=== PATIENT | female | born 1935 | race Caucasian/White ===

== ENCOUNTER → 2016-08-16 | Outpatient (REF) | payer MEDICARE, OTHER ==
[2016-08-16 11:43] LABS: ALBUMIN 3.5 GM/DL (3.2-5.2); ALBUMIN/GLOBULIN RATIO 1.06 (1.00-1.93); ALKALINE PHOSPHATASE 54 U/L (45-117); ALT/SGPT 20 U/L (12-78); ANION GAP 6 MEQ/L (8-16); AST/SGOT 20 U/L (15-37); BILIRUBIN,TOTAL 1.2 MG/DL (0.2-1.0); BLOOD UREA NITROGEN 34 MG/DL (7-18); CALCIUM LEVEL 8.8 MG/DL (8.8-10.2); CARBON DIOXIDE LEVEL 28 MEQ/L (21-32); CHLORIDE LEVEL 107 MEQ/L (98-107); CHOLESTEROL LEVEL 259 MG/DL (<200); CREATININE FOR GFR 0.69 MG/DL (0.55-1.02); GLOMERULAR FILTRATION RATE > 60.0 (>39); GLUCOSE, FASTING 92 MG/DL (83-110); POTASSIUM SERUM 4.1 MEQ/L (3.5-5.1); SODIUM LEVEL 141 MEQ/L (136-145); TOTAL PROTEIN 6.8 GM/DL (6.4-8.2); TRIGLYCERIDES LEVEL 86 MG/DL (<150)
== END ==
LOC: M SFHCPLAZ 08:59
PROVIDERS: ATTEND Internal Medicine
DX: E78.00 Pure hypercholesterolemia, unspecified (principal)

== ENCOUNTER → 2016-09-18 | Outpatient (CLI) | payer MEDICARE, OTHER ==
--- NOTE | 2016-09-18 14:03 | REPMRS ---
Patient History The patient states she has not had a clinical breast exam in over a year. Patient is postmenopausal and has history of other cancer at age 72. No known family history of cancer. Benign excisional biopsy of the left breast, August 1986. Taking unspecified hormones for 5 years. Digital Woman Screen Mammo: September 18, 2016 - Exam #: [id number] Bilateral CC and MLO view(s) were taken. Technologist: Cassi Newman, Technologist Prior study comparison: April 29, 2015, left breast diagnostic unilateral mammo, performed at [facility]. April 21, 2015, digital bilateral screening mammo, performed at [facility]. FINDINGS: There are scattered fibroglandular densities. There has been no change in the appearance of the mammogram from the prior studies. There is a mild amount of residual fibroglandular tissue which is fairly symmetric. There is no interval development of dominant mass, architectural distortion, or clustered microcalcification suggestive of malignancy. ASSESSMENT: BI-RADS/ACR category 1 mammogram. Negative. Recommendation Routine screening mammogram in 1 year (for women over age 40). This mammogram was interpreted with the aid of an FDA-approved computer-aided dectection system. Electronically Signed By: Festus Ledezma MD 09/18/16 [id number]
--- NOTE | 2016-09-20 12:24 | DEXA ---
AP SPINE L1 - L4 1.042 -1.2 0.6 LT FEMUR TOTAL 0.872 -1.1 0.9 RT FEMUR TOTAL 0.779 -1.8 0.1 TOTAL BODY TOTAL OTHER DUAL FEMUR FRAX* ASSESSMENT Risk factors: Not performed. 10 year probability of fracture Major osteoporotic fracture % Hip fracture % COMMENTS: There is low bone density of the spine and hips. The increased density of the spine does represent a significant change. The increased density of the left hip does represent a significant change. The increased density of the right hip does not represent a significant change. The density of the spine has increased 18.9% since the initial exam on 2001. The spine density has increased 11.7% since the most recent exam on 07/11/2006. The density of the left hip has increased 8.2% since the initial exam on 2001. The density of the left hip has increased 6.9% since the most recent exam on 07/2006. The density of the right hip has increased 1.7% since the initial exam on 2001. The density of the right hip has increased 1.0% since the most recent exam on . FOLLOW-UP: Recommendation for the next bone density exam: 2 years. BRAD
== END ==
LOC: M WHC 13:02
PROVIDERS: ATTEND Internal Medicine
DX: Z12.31 Encounter for screening mammogram for malignant neoplasm of breast (principal); M85.80 Other specified disorders of bone density and structure, unspecified site; Z78.0 Asymptomatic menopausal state
CPT/HCPCS: 77080; G0202

== ENCOUNTER → 2017-08-27 | Outpatient (REF) | payer MEDICARE, OTHER ==
[2017-08-27 11:54] LABS: TOTAL 25(OH) VITAMIN D 38.3 NG/ML (30.0-100.0)
[2017-08-27 11:56] LABS: HEMATOCRIT 37.2 % (36.0-47.0); HEMOGLOBIN 12.2 g/dl (12.0-15.5); MEAN CORPUSCULAR HGB CONC 32.8 g/dl (32.0-36.5); MEAN CORPUSCULAR VOLUME 91.6 fl (80.0-96.0); PLATELET COUNT, AUTOMATED 271 10^3/uL (150-450); RED BLOOD COUNT 4.06 10^6/uL (4.00-5.40); RED CELL DISTRIBUTION WIDTH 12.2 % (11.5-14.5); WHITE BLOOD COUNT 7.4 10^3/uL (4.0-10.0)
[2017-08-27 12:20] LABS: ALBUMIN 3.4 GM/DL (3.2-5.2); ALBUMIN/GLOBULIN RATIO 0.94 (1.00-1.93); ALKALINE PHOSPHATASE 51 U/L (45-117); ALT/SGPT 20 U/L (12-78); ANION GAP 7 MEQ/L (8-16); AST/SGOT 16 U/L (7-37); BILIRUBIN,TOTAL 0.8 MG/DL (0.2-1.0); BLOOD UREA NITROGEN 31 MG/DL (7-18); CALCIUM LEVEL 8.6 MG/DL (8.8-10.2); CARBON DIOXIDE LEVEL 30 MEQ/L (21-32); CHLORIDE LEVEL 108 MEQ/L (98-107); CHOLESTEROL LEVEL 244 MG/DL (<200); CREATININE FOR GFR 0.66 MG/DL (0.55-1.30); GLOMERULAR FILTRATION RATE > 60.0 (>39); GLUCOSE, FASTING 98 MG/DL (70-100); HDL CHOLESTEROL 57 MG/DL (>40); LDL CHOLESTEROL 169.8 MG/DL (<100); NON-HDL-C 187 MG/DL; POTASSIUM SERUM 4.4 MEQ/L (3.5-5.1); SODIUM LEVEL 145 MEQ/L (136-145); TRIGLYCERIDES LEVEL 86 MG/DL (<150)
== END ==
LOC: M SFHCPLAZ 08:12
DX: J45.909 Unspecified asthma, uncomplicated (principal); E78.00 Pure hypercholesterolemia, unspecified; M85.80 Other specified disorders of bone density and structure, unspecified site
CPT/HCPCS: 80053

== ENCOUNTER → 2019-01-23 | Outpatient (CLI) | payer MEDICARE, OTHER ==
[2019-01-23 13:16] LABS: HEMATOCRIT 41.5 % (36.0-47.0); HEMOGLOBIN 13.3 g/dl (12.0-15.5); MEAN CORPUSCULAR HEMOGLOBIN 29.8 pg (27.0-33.0); PLATELET COUNT, AUTOMATED 287 10^3/uL (150-450); RED BLOOD COUNT 4.46 10^6/uL (4.00-5.40); WHITE BLOOD COUNT 7.5 10^3/uL (4.0-10.0)
[2019-01-23 13:24] LABS: ALBUMIN 3.7 GM/DL (3.2-5.2); ALT/SGPT 28 U/L (12-78); BILIRUBIN,TOTAL 0.6 MG/DL (0.2-1.0); BLOOD UREA NITROGEN 17 MG/DL (7-18); CALCIUM LEVEL 8.8 MG/DL (8.8-10.2); CARBON DIOXIDE LEVEL 30 MEQ/L (21-32); CHLORIDE LEVEL 106 MEQ/L (98-107); CHOLESTEROL LEVEL 296 MG/DL (<200); CHOLESTEROL RISK RATIO 5.192 (<5); CREATININE FOR GFR 0.75 MG/DL (0.55-1.30); GLOMERULAR FILTRATION RATE > 60.0 (>32); GLUCOSE, FASTING 95 MG/DL (70-100); HDL CHOLESTEROL 57 MG/DL (>40); LDL CHOLESTEROL 212 MG/DL (<100); NON-HDL-C 239 MG/DL; POTASSIUM SERUM 4.7 MEQ/L (3.5-5.1); SODIUM LEVEL 143 MEQ/L (136-145); TOTAL PROTEIN 7.6 GM/DL (6.4-8.2); TRIGLYCERIDES LEVEL 137 MG/DL (<150)
== END ==
LOC: M PLALAB 10:24
PROVIDERS: ATTEND Internal Medicine
DX: E78.00 Pure hypercholesterolemia, unspecified (principal); J45.909 Unspecified asthma, uncomplicated

== ENCOUNTER 2019-03-04 10:34 | Outpatient (RCR) | payer MEDICARE, OTHER | END 2019-03-07 | LOC: M PT 10:34 | PROVIDERS: ATTEND Internal Medicine | DX: N39.3 Stress incontinence (female) (male) (principal) ==

== ENCOUNTER 2019-04-01 13:50 | Outpatient (RCR) | payer MEDICARE, OTHER | END 2019-04-05 | LOC: M PT 13:50 | PROVIDERS: ATTEND Internal Medicine | DX: N39.3 Stress incontinence (female) (male) (principal) ==

== ENCOUNTER 2019-04-17 13:55 | Outpatient (RCR) | payer MEDICARE, OTHER | END 2019-05-06 | LOC: M PT 13:55 | PROVIDERS: ATTEND Internal Medicine | DX: Z51.89 Encounter for other specified aftercare (principal); N39.3 Stress incontinence (female) (male) ==

== ENCOUNTER 2019-10-07 09:23 | Emergency (ER) | payer MEDICARE, OTHER ==
[~2019-10-07] VITALS: Ht 157.5 cm; Wt 64.9 kg
[2019-10-07] MEDS ORDERED: ISOVUE-370 76% 100ML VIAL As Ordered ONE (11:04)
[2019-10-07 11:05] LABS: BASO # 0.1 10^3/uL (0.0-0.2); BASO % 0.7 % (0.0-1.0); EOS # 0.2 10^3/uL (0.0-0.5); EOS % 1.2 % (0.0-3.0); HEMATOCRIT 38.3 % (36.0-47.0); HEMOGLOBIN 12.9 g/dl (12.0-15.5); LYMPH # 2.2 10^3/uL (1.5-5.0); MEAN CORPUSCULAR HEMOGLOBIN 30.8 pg (27.0-33.0); MEAN CORPUSCULAR HGB CONC 33.7 g/dl (32.0-36.5); MEAN CORPUSCULAR VOLUME 91.4 fl (80.0-96.0); MONO # 1.5 10^3/uL (0.0-0.8); MONO % 11.9 % (0.0-5.0); NEUTROPHILS # 8.8 10^3/uL (1.5-8.5); NEUTROPHILS % 68.7 % (36.0-66.0); PLATELET COUNT, AUTOMATED 268 10^3/uL (150-450); RED BLOOD COUNT 4.19 10^6/uL (4.00-5.40); WHITE BLOOD COUNT 12.9 10^3/uL (4.0-10.0)
[2019-10-07] MEDS ORDERED: dexameTHASONE 4 MG/ML 1ML VIAL (J1100 PER 1MG) IV ONE (11:30)
[2019-10-07] MEDS ORDERED: PIPERACILLIN/TAZOBACTAM SOD 3.375 GM in D5W MINI-BAG PLUS 50 ML IV ONE (11:30)
[2019-10-07 11:33] LABS: ALBUMIN 3.4 GM/DL (3.2-5.2); BILIRUBIN,DIRECT 0.2 MG/DL (0.0-0.2); BILIRUBIN,TOTAL 1.2 MG/DL (0.2-1.0); C REACTIVE PROTEIN QUANTITATIV 6.45 MG/DL (0.00-0.30); TOTAL PROTEIN 7.4 GM/DL (6.4-8.2)
[2019-10-07 11:39] LABS: ERYTHROCYTE SEDIMENTATION RATE 56 mm/hr (0-30)
[2019-10-07 13:06] VITALS: BP 143/65
--- NOTE | 2019-11-05 07:24 | REP ---
CT MAXILLOFACIAL STUDY WITH CONTRAST: CLINICAL: Left perimaxillary and perimandibular swelling. TECHNIQUE: Axial images through the maxillofacial region with coronal and sagittal reformations using 100 cc Isovue 370 intravenous contrast material. FINDINGS: The left parotid gland is asymmetrically enlarged and mild/moderate surrounding inflammatory stranding is appreciated along with left-sided adenopathy. No abscess or drainable collection. No discrete mass. The osseous structure are intact. The sinuses and mastoid air cells are clear. IMPRESSION: Findings consistent with left-sided parotitis. No drainable collection/abscess or mass. MTDD
== END 2019-10-07 13:39 | disposition home or self-care (01) ==
LOC: M ED 09:23
DX: K11.21 Acute sialoadenitis (principal); E78.5 Hyperlipidemia, unspecified; Z88.8 Allergy status to other drugs, medicaments and biological substances
CPT/HCPCS: 70487; 80047; 80076; 83605; 85025; 85652; 86140; 87040; 96365; 96375; 99284; J1100; J2543; Q9967

== ENCOUNTER → 2020-03-05 | Outpatient (REF) | payer MEDICARE, OTHER ==
[2020-03-05 15:25] LABS: HEMATOCRIT 39.2 % (36.0-47.0); MEAN CORPUSCULAR HEMOGLOBIN 29.7 pg (27.0-33.0); MEAN CORPUSCULAR HGB CONC 33.2 g/dl (32.0-36.5); MEAN CORPUSCULAR VOLUME 89.7 fl (80.0-96.0); PLATELET COUNT, AUTOMATED 292 10^3/uL (150-450); RED BLOOD COUNT 4.37 10^6/uL (4.00-5.40)
[2020-03-05 16:01] LABS: ALBUMIN 3.6 GM/DL (3.2-5.2); ALT/SGPT 25 U/L (12-78); BILIRUBIN,TOTAL 0.7 MG/DL (0.2-1.0); BLOOD UREA NITROGEN 20 MG/DL (7-18); CALCIUM LEVEL 9.3 MG/DL (8.8-10.2); CARBON DIOXIDE LEVEL 27 MEQ/L (21-32); CHLORIDE LEVEL 105 MEQ/L (98-107); CHOLESTEROL LEVEL 249 MG/DL (<200); CHOLESTEROL RISK RATIO 4.368 (<5); CREATININE FOR GFR 0.83 MG/DL (0.55-1.30); GLOMERULAR FILTRATION RATE > 60.0 (>32); GLUCOSE, FASTING 101 MG/DL (70-100); HDL CHOLESTEROL 57 MG/DL (>40); LDL CHOLESTEROL 170 MG/DL (<100); NON-HDL-C 192 MG/DL; POTASSIUM SERUM 4.6 MEQ/L (3.5-5.1); SODIUM LEVEL 141 MEQ/L (136-145); TOTAL PROTEIN 7.2 GM/DL (6.4-8.2); TRIGLYCERIDES LEVEL 112 MG/DL (<150)
[2020-03-05 16:04] LABS: TOTAL 25(OH) VITAMIN D 20.6 NG/ML (30.0-100.0)
== END ==
LOC: M PLALAB 13:02
PROVIDERS: ATTEND Internal Medicine
DX: J45.909 Unspecified asthma, uncomplicated (principal); E78.00 Pure hypercholesterolemia, unspecified; M85.80 Other specified disorders of bone density and structure, unspecified site

== ENCOUNTER → 2020-03-10 | Outpatient (REF) | payer MEDICARE, OTHER ==
[2020-03-10 15:15] LABS: HEPATITIS B SURFACE ANTIGEN NEGATIVE (NEGATIVE)
[2020-03-11 05:07] LABS: HEPATITIS A IgG TOTAL Positive (Negative)
== END ==
LOC: M SFHCPLAZ 11:13
PROVIDERS: ATTEND Internal Medicine
DX: Z86.19 Personal history of other infectious and parasitic diseases (principal)
CPT/HCPCS: 36415; 86317; 86708; 87340; G0463; G0472

== ENCOUNTER → 2020-05-31 | Outpatient (REF) | payer MEDICARE, OTHER ==
[2020-05-31 17:14] LABS: APPEARANCE, URINE HAZY (CLEAR); BACTERIA, URINE AUTO NEGATIVE (NEGATIVE); BILIRUBIN, URINE AUTO NEGATIVE (NEGATIVE); BLOOD, URINE BLOOD NEGATIVE (NEGATIVE); COLOR, URINE YELLOW (YELLOW); GLUCOSE, URINE (UA) AUTO NEGATIVE (NEGATIVE); KETONE, URINE AUTO NEGATIVE (NEGATIVE); LEUKOCYTE ESTERASE, URINE AUTO TRACE (NEGATIVE); NITRITE, URINE AUTO NEGATIVE (NEGATIVE); PROTEIN, URINE AUTO NEGATIVE (NEGATIVE); RBC, URINE AUTO 0 /HPF (0-3); SPECIFIC GRAVITY URINE AUTO 1.011 (1.002-1.035); SQUAMOUS EPITHELIAL CELL UR AU 1 /HPF (0-6); UROBILINOGEN, URINE AUTO 0.2 mg/dL (0.0-2.0); WBC, URINE AUTO 1 /HPF (0-3)
== END ==
LOC: M LAB REF 16:18
PROVIDERS: ATTEND Obstetrics & Gynecology
DX: N39.3 Stress incontinence (female) (male) (principal)

== ENCOUNTER → 2020-10-29 | Outpatient (CLI) | payer MEDICARE, OTHER ==
--- NOTE | 2020-10-29 15:46 | REP ---
INDICATION: DYSARTHRIA AND ANARTHRIA. COMPARISON: None. TECHNIQUE: Axial and sagittal imaging planes are utilized for T1 and T2-weighted scans. Sequences include spin-echo, fast spin echo, FLAIR, and diffusion weighted sequences. FINDINGS: No bony calvarial lesion is seen. Craniocervical junction and upper cervical cord are normal in appearance. There is no MR evidence of significant paranasal sinus disease. No intraorbital abnormality is seen. There is generalized volume loss. Small vessel changes are seen in the periventricular white matter bilaterally. There is a lesion in the left frontal parietal region characterized by a small in homogeneous nodule surrounded by vasogenic edema. The in homogeneous nodule contains tiny foci of restricted diffusion. There is no evidence of blood breakdown products or hemorrhage. The findings are suggestive of primary or secondary brain neoplasm. There is mild localized mass effect. No infarction is appreciated. No extra-axial fluid collection is the lesion measures approximately 13 mm but there is a larger zone of vasogenic edema surrounding it. 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 Primary versus metastatic malignancy suspected. Post gadolinium enhanced MR imaging could be considered for further evaluation. The patient does not appear to have had a recent chest x-ray. <Electronically signed by Trevor Stevenson > 10/29/20 [id number]
--- NOTE | 2020-10-29 15:48 | REP ---
INDICATION: DYSARTHRIA AND ANARTHRIA. COMPARISON: None. TECHNIQUE: 3-D [id number] MR angiography of the brain is acquired in the usual fashion and maximal intensity projection images were generated in rotational format about the vertical and horizontal axes. In addition, source axial T1-weighted images are viewed in cine mode. FINDINGS: The distal vertebral arteries are patent and co-dominant. Basilar artery is a little tortuous but widely patent. The posterior cerebral and superior cerebellar vessels are normal and symmetric. The distal internal carotid arteries are unremarkable. Anterior and middle cerebral arteries appear intact. There is no visible gaston aneurysm or arteriovenous malformation. IMPRESSION: Unremarkable MR angiography the brain. <Electronically signed by Trevor Stevenson > 10/29/20 [id number]
--- NOTE | 2020-10-29 16:09 | REP ---
INDICATION: DYSARTHRIA AND ANARTHRIA. COMPARISON: None. TECHNIQUE: 2D [id number] MR angiography of the neck is acquired. Maximum intensity projection images are generated. Source axial images are reviewed. FINDINGS: Common carotid arteries are widely patent. Carotid bifurcations show no evidence of significant stenosis of either proximal ICA. The cervical segments of the internal carotid arteries are unremarkable bilaterally. Vertebral arteries are patent bilaterally and codominant. IMPRESSION: No evidence of carotid or vertebral stenosis or occlusion. Unremarkable MR angiography. <Electronically signed by Trevor Stevenson > 10/29/20 [id number]
== END ==
LOC: M PLARAD 12:51
PROVIDERS: ATTEND Internal Medicine
DX: R94.02 Abnormal brain scan (principal); R29.818 Other symptoms and signs involving the nervous system; R47.1 Dysarthria and anarthria

== ENCOUNTER → 2020-11-02 | Outpatient (CLI) | payer MEDICARE, OTHER ==
--- NOTE | 2020-11-02 15:58 | REP ---
INDICATION: NEOPLASM OF UNSPECIFIED BEHAVIOR OF BRAIN. COMPARISON: 01/05/2006 TECHNIQUE: PA and lateral FINDINGS: There is cardiomegaly. Lung yeung are clear and stable. The pleural angles are again seen to be sharp. There is no significant change in appearance of the osseous structures. IMPRESSION: Cardiomegaly without evidence of acute cardiopulmonary disease. <Electronically signed by Mandeep Leahy > 11/02/20 0059
== END ==
LOC: M PLALAB 15:19 → M PLAIMG 15:19
PROVIDERS: ATTEND Internal Medicine
DX: D49.6 Neoplasm of unspecified behavior of brain (principal)